=== PATIENT | female | born 1955 | race Caucasian/White ===

== ENCOUNTER → 2018-07-18 | Outpatient (CLI) | payer OTHER ==
--- NOTE | 2018-07-19 12:53 | KCIC ---
EXAM: CHEST 1 VIEW History: Evaluate for tuberculosis COMPARISON: None available. TECHNIQUE: Single portable radiograph of the chest FINDINGS: Low lung volumes accentuates heart size and pulmonary vasculature. Minimal bibasilar lung airspace opacities likely atelectasis or infiltrates. IMPRESSION: Minimal bibasilar lung airspace opacities likely atelectasis or infiltrates. Electronically signed by: Gianluca Amin MD (07/19/2018 12:50 PM) [place] [id number]
== END | disposition home or self-care (01) ==
LOC: KCIC 13:36
PROVIDERS: ATTEND Family Medicine
DX: Z11.1 Encounter for screening for respiratory tuberculosis (principal); R91.8 Other nonspecific abnormal finding of lung field
CPT/HCPCS: 71045

== ENCOUNTER → 2018-08-28 | Outpatient (CLI) | payer OTHER ==
--- NOTE | 2018-08-28 12:51 | KCIC ---
EXAM: Chest, single view. HISTORY: Tuberculosis assessment. COMPARISON: 07/18/2018. FINDINGS: A frontal view of the chest is obtained. There is stable suspected lower lobe atelectasis. There is stable mild eventration of the right hemidiaphragm. There is no consolidated, pleural effusion or pneumothorax. There is a stable prominent cardiac silhouette. IMPRESSION: No acute pulmonary finding or evidence of pulmonary tuberculosis. Electronically signed by: Africa Gordon MD (08/28/2018 12:48 PM) [place] [id number]
== END | disposition home or self-care (01) ==
LOC: KCIC 12:10
PROVIDERS: ATTEND Family Medicine
DX: Z11.1 Encounter for screening for respiratory tuberculosis (principal)
CPT/HCPCS: 71045

== ENCOUNTER → 2018-12-26 | Outpatient (CLI) | payer OTHER ==
--- NOTE | 2018-12-26 17:14 | KCIC ---
EXAM: CHEST 1 VIEW History: TB follow-up COMPARISON: 08/28/2018 TECHNIQUE: Single portable radiograph of the chest FINDINGS: Low lung volumes and technique accentuates heart size and pulmonary vascularity. Mild prominent bilateral interstitial lung markings likely chronic interstitial changes similar to prior exam. Mild elevation of the right hemidiaphragm. IMPRESSION: No acute cardiopulmonary findings. Electronically signed by: Gianluca Amin MD (12/26/2018 5:11 PM) [place] [id number]
== END | disposition home or self-care (01) ==
LOC: KCIC 13:03
PROVIDERS: ATTEND Family Medicine
DX: Z09 Encounter for follow-up examination after completed treatment for conditions other than malignant neoplasm (principal)
CPT/HCPCS: 71045